=== PATIENT | male | born 1985 | race Caucasian/White ===

== ENCOUNTER → 2016-09-11 | Outpatient (CLI) | payer BC ==
--- NOTE | 2016-09-12 10:03 | US ---
EXAM DESCRIPTION: Gall Bladder CLINICAL HISTORY: 31 years, Male, EPIGASTRIC pain COMPARISON: None. FINDINGS: Gallbladder does not demonstrate stones or wall thickening. Common bile duct 5 mm. Intrahepatic ducts not dilated. Liver 21 cm in length with coarse fatty echotexture. Head and body pancreas unremarkable. Pancreatic tail not well seen. Visualized IVC unremarkable. Right kidney images are not provided IMPRESSION: Fatty liver. Gallbladder and biliary system unremarkable Electronically signed by: Jesse Gomes MD 09/12/2016 10:02 AM CDT
== END | disposition home or self-care (01) ==
LOC: US 10:04
PROVIDERS: ATTEND Family Medicine
DX: R10.13 Epigastric pain (principal)

== ENCOUNTER → 2017-01-28 | Outpatient (CLI) | payer BC | END | disposition home or self-care (01) | LOC: GMAB 17:24 | PROVIDERS: ATTEND Family Medicine | DX: R94.5 Abnormal results of liver function studies (principal) ==